=== PATIENT | female | born 1955 | race Asian ===

== ENCOUNTER 2018-12-28 09:06 | Emergency (ER) | payer MEDICAID ==
[~2018-12-28] VITALS: Ht 160 cm; Wt 79.2 kg
[~2018-12-28 09:06] MED LIST: CHOL100015 PO; LOSA50TA14 PO; MULT-709 PO; VITAMIN C PO
[2018-12-28] MEDS ORDERED: ASPIRIN 81 MG TABLET CHEW ONE (10:11)
--- NOTE | 2018-12-28 10:20 | NUR ---
PT BIB P/V WITH ONE WEEK HX OF BACK OF UPPER NECK, HEAD HEAVINESS NOT WORSE WITH PALPATION OR MOVEMENT. PT REPORTS HAVING HIGH BLOOD PRESSURE AT HOME AND DOUBLED HER [place] ONCE DURING THE WEEK. PT DENEIS CP, N,V,D, BLURRED VISION, WHITE, FVERS, OR CHILLS. PT DENIES TROUBLE VOIDING. PT ON MONITOR. CXR DONE. WAITING FOR LABS.
[2018-12-28] MEDS ORDERED: LOSA25TA25 PO (10:26)
[2018-12-28] MEDS ORDERED: SODIUM CHLORIDE FLUSH 10ML SYR IVF ONE (10:30)
[2018-12-28] MEDS ORDERED: ASPIRIN 81 MG TABLET CHEW PO ONE (10:30)
[2018-12-28 10:39] LABS: BASOPHILS # (AUTO) 0.05 x10^3/uL (0-0.1); BASOPHILS % (AUTO) 1 % (0-1); EOSINOPHILS % (AUTO) 2 % (1-7); LYMPHOCYTES # (AUTO) 2.03 x10^3/uL (1-3.4); LYMPHOCYTES % (AUTO) 33 % (22-44); MD NO; MEAN CORPUSCULAR HEMOGLOBIN 30.9 pg (27.0-34.8); MEAN CORPUSCULAR HGB CONC 33.5 g/dL (32.4-35.8); MEAN CORPUSCULAR VOLUME 92.1 fL (80-100); MEAN PLATELET VOLUME 6.6 fL (7.4-10.4); MONOCYTES # (AUTO) 0.53 x10^3/uL (0.2-0.8); MONOCYTES % (AUTO) 9 % (2-9); NEUTROPHILS # (AUTO) 3.55 x10^3/uL (1.8-6.8); NEUTROPHILS % (AUTO) 57 % (42-75); PLATELET COUNT 259 x10^3/uL (130-400); RED BLOOD COUNT 4.22 x10^6/uL (3.82-5.3); RED CELL DISTRIBUTION WIDTH 12.1 % (9.6-15.2)
[2018-12-28 10:49] LABS: ALANINE AMINOTRANSFERASE 57 U/L (12-78); ALBUMIN 3.5 g/dL (3.4-5.0); ANION GAP 5 mmol/L (5-15); CALCIUM 8.4 mg/dL (8.5-10.1); CHLORIDE 112 mmol/L (98-107)
[2018-12-28 10:54] LABS: ALKALINE PHOSPHATASE 93 U/L (45-117); BILIRUBIN,TOTAL 0.5 mg/dL (0.2-1.0); TOTAL PROTEIN 7.3 g/dL (6.4-8.2); TROPONIN I < 0.015 ng/mL (0.000-0.045)
--- NOTE | 2018-12-28 11:03 | NUR ---
3 P'S ADDRESSED. PT UP TO RESTROOM. WAITNIG FOR LAB RESULTS.
[2018-12-28 11:31] VITALS: BP 131/78
== END 2018-12-28 11:39 | disposition home or self-care (01) ==
LOC: ED 11:31
DX: I10 Essential (primary) hypertension (principal); M54.2 Cervicalgia; M54.6 Pain in thoracic spine; Z90.710 Acquired absence of both cervix and uterus; Z90.49 Acquired absence of other specified parts of digestive tract
CPT/HCPCS: 36415; 71045; 80053; 84484; 85025; 93005; 99284